=== PATIENT | male | born 1995 | race Caucasian/White ===

== ENCOUNTER 2025-06-16 16:53 | Emergency (ER) | payer MEDICAID ==
[~2025-06-16] VITALS: Ht 172.7 cm; Wt 81.2 kg
[2025-06-16 17:06] VITALS: TEMP 97.9
[2025-06-16 18:41] LABS: PLATELET COUNT (AUTO) 272 K/uL (150-450); RED BLOOD CELL COUNT(AUTO) 4.54 MIL/uL (4.5-6.0); RED CELL DISTRIBUTION WIDTH 13.0 % (11.5-15.0); WHITE BLOOD COUNT (AUTO) 10.3 K/uL (4.3-11.0)
[2025-06-16 18:56] LABS: ALCOHOL, BLOOD < 3 mg/dL (0-10); CALCIUM, SERUM 8.3 mg/dL (8.5-10.1); CREATININE 1.1 mg/dL (0.6-1.3); SODIUM SERUM 140 mmol/L (136-145); UREA NITROGEN, BLOOD 15 mg/dL (7-18)
[2025-06-16 18:59] LABS: AMPHETAMINE, URINE NEGATIVE (NEGATIVE); BARBITURATE, URINE NEGATIVE (NEGATIVE); BENZODIAZEPINE, URINE NEGATIVE (NEGATIVE); CANNABINOID, URINE NEGATIVE (NEGATIVE); COCCAINE, URINE NEGATIVE (NEGATIVE); OPIATE, URINE NEGATIVE (NEGATIVE)
[2025-06-16 19:53] VITALS: BP 125/85; O2SAT 100
== END 2025-06-16 19:25 | disposition home or self-care (01) ==
LOC: ER 17:08
DX: T40.491A Poisoning by other synthetic narcotics, accidental (unintentional), initial encounter (principal); F19.11 Other psychoactive substance abuse, in remission
CPT/HCPCS: 36415; 80048-TC; 85025-TC; G0480